=== PATIENT | male | born 1990 | race Caucasian/White ===

== ENCOUNTER 2016-12-21 06:55 | Emergency (ER) | payer SELFPAY ==
[2016-12-21 06:58] VITALS: BP 137/77; BMI 28.8
[2016-12-21] MEDS ORDERED: XYLOCAINE 1 % (PLAIN) ONE (07:25)
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
== END 2016-12-21 08:03 | disposition home or self-care (01) ==
LOC: ER 06:55
PROC: 0WQ00ZZ Repair Head, Open Approach (ICD-10-PCS; principal; 2016-12-21)
DX: S01.01XA Laceration without foreign body of scalp, initial encounter (principal); S09.90XA Unspecified injury of head, initial encounter; X58.XXXA Exposure to other specified factors, initial encounter; Y92.69 Other specified industrial and construction area as the place of occurrence of the external cause
CPT/HCPCS: 12002; 70450; 99282; 99283; J2001

== ENCOUNTER 2017-02-01 00:32 | Emergency (ER) | payer SELFPAY ==
[2017-02-01 00:46] VITALS: BMI 26.5
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
[2017-02-01] MEDS ORDERED: NS 100 ML IV 100 ML IV ONE (01:19)
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
[2017-02-01] MEDS ORDERED: KEFLEX CAP 500 MG PO ONE ×2 (02:41→03:07)
[2017-02-01] MEDS ORDERED: XYLOCAINE 1 % (PLAIN) ONE (02:46)
[2017-02-01] MEDS ORDERED: NEOSPORIN OINT TOP ONE (03:05)
[2017-02-01] MEDS ORDERED: NEOSPORIN OINT ONE (03:07)
[2017-02-01 03:37] VITALS: BP 124/81
== END 2017-02-01 03:35 | disposition home or self-care (01) ==
LOC: ER 00:32
PROC: 0WQF0ZZ Repair Abdominal Wall, Open Approach (ICD-10-PCS; principal; 2017-02-01)
DX: S31.119A Laceration without foreign body of abdominal wall, unspecified quadrant without penetration into peritoneal cavity, initial encounter (principal); W01.110A Fall on same level from slipping, tripping and stumbling with subsequent striking against sharp glass, initial encounter; Y92.9 Unspecified place or not applicable
CPT/HCPCS: 12001; 74177; 96365; 99283; A4222; J2001

== ENCOUNTER 2017-04-07 00:59 | Emergency (ER) | payer SELFPAY ==
[2017-04-07 01:06] VITALS: BP 147/80; BMI 25.8
[2017-04-07] MEDS ORDERED: NEOSPORIN OINT TOP ONE (01:49)
[2017-04-07] MEDS ORDERED: NEOSPORIN OINT ONE (01:49)
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
[2017-04-07] MEDS ORDERED: ANCEF VIAL 1 GM IM ONE (02:07)
[2017-04-07] MEDS ORDERED: MOTRIN TAB 800 MG PO ONE ×2 (02:08→02:33)
[2017-04-07] MEDS ORDERED: ANCEF VIAL 1 GM ONE (02:33)
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
== END 2017-04-07 03:15 | disposition home or self-care (01) ==
LOC: ER 00:59
DX: S71.111A Laceration without foreign body, right thigh, initial encounter (principal); S71.131A Puncture wound without foreign body, right thigh, initial encounter; X99.1XXA Assault by knife, initial encounter; Y92.89 Other specified places as the place of occurrence of the external cause
CPT/HCPCS: 73552; 96372; 99282; J0690

== ENCOUNTER 2017-10-01 19:25 | Emergency (ER) | payer SELFPAY ==
[2017-10-01 19:34] VITALS: BMI 27.8
[2017-10-01] MEDS ORDERED: XYLOCAINE 1 % (PLAIN) ONE (19:48)
--- NOTE | 2017-10-01 19:53 | DR.GENAD ---
HPI - PCP Primary Care Physician: nfd - Complaint/Symptoms Chief Complaint Doctors Comments: History as stated. Chief Complaint:: pt has 5 cm laceration to rt forearm from machine at work - Source History Provided: Patient - Mode of Arrival Mode of Arrival: Ambulatory - Timing Onset of Chief Complaint: 10/01/17 PMH - PMH Past Medical History: No Past Surgical History: No - Family History History of Family Medical Conditions: Yes Family Medical History: Diabetes Mellitus, [place], Hypertension - Social History Does any household member use tobacco: No Alcohol Use: Occasionally Do you use any recreational Drugs:: No Lives With: Family Lives Where: Home - infectious screening In the last 2 months have you had wt loss of >10#?: NO Have you had fever, night sweats or hemotysis?: No Have you traveled outside the country in the last 6 months?: No Isolation: Standard ROS - Review of Systems Eyes: No Symptoms Reported ENTM: No Symptoms Reported Respiratoy: No Symptoms Reported Cardiovascular: No Symptoms Reported Gastrointestinal/Abdominal: No Symptoms Reported Genitourinary: No Symptoms Reported Neurological: No Symptoms Reported Musculoskeletal: Other (superficial laceration to right forearm anterior) Integumentary: No Symptoms Reported Hematologic/Lymphatic: No Symptoms Reported Endocrine: No Symptoms Reported Psychiatric: No Symptoms Reported All Other Systems: Reviewed and Negative PE - Vital Signs Vitals: Temperature 98.2 F Pulse Rate 96 Respiratory Rate 18 Blood Pressure [Left Arm] 124/81 Blood Pressure 138/64 O2 Sat by Pulse Oximetry 99 - General General Appearance: Alert, In No Apparent Distress - Head Head Exam: Normal Inspection, Atraumatic - Eyes Eye exam: Normal Appearance, PERRL, EOMI - ENT ENT Exam: Normal Exam External Ear Exam: Normal External Inspection TM/Canal Exam: Bilateral Normal Nose Exam: Normal Nose Exam Mouth Exam: Normal Inspection Throat Exam: Normal Inspection - Neck Neck Exam: Normal Inspection - Chest Chest Inspection: Normal Inspection - Respiratory Respiratory Exam: Normal Lung Sounds Bilat Respiratory Exam: Bilateral Clear to Auscultation - Cardiovascular Cardiovascular Exam: Regular Rate, Normal Rhythm - Abdominal Exam Abdominal Exam: Normal Inspection, Normal Bowel Sounds Abdominal Tenderness: negative: RUQ, RLQ, LUQ, LLQ, Epigastrium, Suprapubic, Diffuse, Mild, Moderate, Severe, Other - Extremities Extremities Exam: Normal Inspection, Full ROM - Back Back Exam: Normal Inspection - Neurologic Neurological Exam: Alert, Oriented X3, CN II-XII Intact - Psychiatric Psychiatric Exam: Normal Affect - Skin Skin Exam: Warm, Dry Course - Reevaluation 1st: Improved Procedures - Laceration/Wound Repair Right Forearm Wound Length (cm): 4 Wound's Depth, Shape: Superficial, Linear Wound Explored: clean Betadine Prep?: Yes Anesthesia: 1% Lidocaine (10) Wound Debrided: minimal Wound Repaired With: sutures Suture Size/Type: 4:0, Ethilion Sterile Dressing Applied?: Yes - Diagnosis Discharge Problem: Laceration of upper limb - Discharge Plan Condition: Stable - Follow ups/Referrals Follow ups/Referrals: NFD,None [Primary Care Provider] - 3 days - Instructions
[2017-10-01 20:28] VITALS: BP 126/76
== END 2017-10-01 20:28 | disposition home or self-care (01) ==
LOC: ER 19:25
PROC: 0XQ8XZZ Repair Right Upper Arm, External Approach (ICD-10-PCS; principal; 2017-10-01)
DX: S51.811A Laceration without foreign body of right forearm, initial encounter (principal); W45.8XXA Other foreign body or object entering through skin, initial encounter; Y92.69 Other specified industrial and construction area as the place of occurrence of the external cause
CPT/HCPCS: 12002; 99282; J2001